=== PATIENT | male | born 1940 | race Caucasian/White ===

== ENCOUNTER → 2023-04-21 09:36 | Outpatient (BNVA) | payer MEDICARE, MEDICAID, SELFPAY | PROVIDERS: Family Provider Internal Medicine; PCP Internal Medicine; Visit Provider Psychiatry & Neurology Neurology | DX: Z09 Encounter for follow-up examination after completed treatment for conditions other than malignant neoplasm (principal); Z86.69 Personal history of other diseases of the nervous system and sense organs; R06.02 Shortness of breath; Z98.890 Other specified postprocedural states | CPT/HCPCS: 99203 ==

== ENCOUNTER 2023-06-02 07:53 | Outpatient (CLI) | payer MEDICARE, MEDICAID, SELFPAY ==
--- NOTE | 2023-06-02 08:30 | USCV_ITS ---
Cher Sotomayor Age: 83 Gender: F : 1940 Exam Date: 06/02/2023 08:56 Ordering Phys: Karina Chen MD Technologist: CT [place] [facility] [place]: carotid stenosis Risk Factors: Previous Vascular Surgery: Right Brachial BP: / Left Brachial BP: / Right Left Velocity (cm/s) Spectral Plaque Velocity (cm/s) Spectral Plaque Syst/Diast Broadening Syst/Diast Broadening 95.90/ 16.50 Prox CCA 116.50/ 19.00 78.90/ 14.80 Mid CCA 107.70/ 15.40 80.60/ 14.30 Distal CCA 91.20 / 15.40 56.50/ 8.50 Prox ICA 54.50 / 14.50 50.00/ 11.10 Mid ICA 100.00/ 25.00 83.60/ 20.30 Distal ICA 87.00 / 19.40 35.60 ECA 63.70 0.87 ICA/CCA 0.86 Antegrade Vertebral Antegrade 74.60/ 28.00 cm/s 52.80/ 8.30 cm/s Tri Subclavian Tri 146.0 124.1 0 0 CONCLUSIONS Right ICA stenosis <50%. Mild atheromatous plaque right carotid bulb/ICA. Left ICA stenosis <50%. Mild atheromatous plaque left carotid bulb/ICA. Normal antegrade Doppler flow noted in the right vertebral artery. Normal antegrade Doppler flow noted in the left vertebral artery. Louie Redmond MD (Electronically Signed) Final Date: 02 June 2023 12:49 S
[2023-06-02 08:54] LABS: Basophils % 0.3 %; Eosinophils # 0.1 10^3/uL (0.0-0.8); Eosinophils % 1.8 %; Hematocrit 47.1 % (37.0-47.0); Lymphocytes # 0.9 10^3/uL (0.8-4.8); Mean Corpuscular Hemoglobin 29.7 pg (28.0-34.0); Mean Corpuscular Volume 87.5 fl (81-99); Monocytes # 0.4 10^3/uL (0.2-0.9); Monocytes % 7.1 %; Neutrophils # 4.53 10^3/uL (1.8-7.7); Neutrophils % 75.3 %; Nucleated Red Blood Cells % 0 %; Platelet Count 226 10^3/cmm (130-400); Red Blood Count 5.38 10^6/uL (4.1-5.3); Red Cell Distribution Width 13.3 % (12.1-15.1)
[2023-06-02 09:02] LABS: Erythrocyte Sedimentation Rate 15 mm/hr (0-15)
[2023-06-02 09:32] LABS: Alanine Aminotransferase 13 U/L (0-33); Albumin Level 4.2 g/dL (3.5-5.2); Alkaline Phosphatase 139 U/L (35-105); Anion Gap 15.4 (5-19); Aspartate Amino Transferase 16 U/L (0-32); Blood Urea Nitrogen 10 mg/dL (8-23); Calcium 9.5 mg/dL (8.5-10.5); Carbon Dioxide 28 mmol/L (22-29); Chloride 97 mmol/L (98-107); Chol HDL Ratio 2.07 mg/dL (0.0-4.40); Cholesterol 203 mg/dL (0-200); Free T4 Free Thyroxine 1.64 ng/dL (0.82-1.77); Globulin 2.1 g/dL (1.3-4.6); Glucose 142 mg/dL (65-115); HDL Cholesterol 98 mg/dL (60-100); LDL Cholesterol Calculated 86 mg/dL (50-129); LDL HDL Ratio 0.88 RATIO (0.00-3.22); Magnesium 1.9 mg/dL (1.7-2.3); Osmolality Calculated 283 mOsm/kg (285-295); Potassium 4.4 mmol/L (3.5-5.1); Sodium 136 mmol/L (136-145); T3 Free 2.8 PG/ML (2.0-4.4); Thyroid Stimulating Hormone 0.58 uIU/mL (0.27-4.20); Total Bilirubin 0.5 mg/dL (0.15-1.2); Total Protein 6.3 g/dL (6.6-8.7); Triglycerides 97 mg/dL (0-150)
[2023-06-02 10:11] LABS: Folate Level > 20.0 ng/mL (4.8-37.3)
[2023-06-02 10:41] LABS: 25 Hydroxy Vitamin D 57 ng/mL (30-100); Vitamin B12 969 pg/mL (232-1245)
[2023-06-03 09:55] LABS: PROTEIN, TOTAL 6.5 g/dL (6.1-8.1)
[2023-06-03 12:30] LABS: CENTROMERE B ANTIBODY <1.0 NEG AI (<1.0 NEG); JO-1 ANTIBODY <1.0 NEG AI (<1.0 NEG); RNP ANTIBODY <1.0 NEG AI (<1.0 NEG); SCL-70 ANTIBODY <1.0 NEG AI (<1.0 NEG); SJOGREN'S ANTIBODY (SS-A) <1.0 NEG AI (<1.0 NEG); SM ANTIBODY <1.0 NEG AI (<1.0 NEG); SS-B <1.0 NEG AI (<1.0 NEG)
[2023-06-03 12:41] LABS: COMPLEMENT COMPONENT C3C 146 mg/dL; COMPLEMENT COMPONENT C4C 24 mg/dL
[2023-06-03 14:34] LABS: ANA SCREEN, IFA NEGATIVE (NEGATIVE)
[2023-06-04 07:50] LABS: ALBUMIN 4.1 g/dL (3.8-4.8); ALPHA 1 GLOBULIN 0.3 g/dL (0.2-0.3); ALPHA 2 GLOBULIN 0.7 g/dL (0.5-0.9); BETA 1 GLOBULIN 0.4 g/dL (0.4-0.6); BETA 2 GLOBULIN 0.3 g/dL (0.2-0.5); GAMMA GLOBULIN 0.7 g/dL (0.8-1.7)
[2023-06-04 12:18] LABS: COMPLEMENT, TOTAL (CH50) >60 U/mL (31-60)
[2023-06-04 18:59] LABS: PTT-LA-Screen 38 sec (< OR = 40)
[2023-06-05 06:44] LABS: Methylmalonic Acid 192 nmol/L (87-318)
[2023-06-05 20:13] LABS: PROTEIN C, ACTIVITY 155 % normal (70-180)
[2023-06-05 20:28] LABS: Antithrombin III Activity 104 % normal (80-135)
[2023-06-05 22:09] LABS: PROTEIN S, ACTIVITY 67 % normal (60-140)
[2023-06-06 18:39] LABS: PROTHROMBIN (FACTOR II) 20210G NEGATIVE
[2023-06-07 10:45] LABS: THYROID PEROXIDASE ANTIBODIES <1 IU/mL (<9)
[2023-06-07 18:35] LABS: Copper Level 129 mcg/dL (70-175)
[2023-06-09 14:44] LABS: Anti-Cardiolipin IgA AB <2.0 APL-U/mL
[2023-06-09 15:20] LABS: Beta 2 Glycoprotein IGA <2.0 U/mL (<20.0); Beta 2 Glycoprotein IGG <2.0 U/mL (<20.0); Beta 2 Glycoprotein IGM <2.0 U/mL (<20.0)
[2023-06-11 18:10] LABS: DNA AB (DS) CRITHIDIA,IFA NEGATIVE (NEGATIVE)
== END 2023-06-02 07:54 | disposition home or self-care (01) ==
PROVIDERS: Visit Provider Specialist
DX: G45.9 Transient cerebral ischemic attack, unspecified (principal); R00.1 Bradycardia, unspecified; R29.90 Unspecified symptoms and signs involving the nervous system; E55.9 Vitamin D deficiency, unspecified
CPT/HCPCS: 36415; 80053; 80061; 82306; 82525; 82607; 82746; 83735; 83921; 84155; 84165; 84439; 84443; 84481; 85025; 85210; 85300; 85303; 85306; 85613; 85651; 85730; 86146; 86147; 86160; 86162; 86235; 86255; 86376; 86431; 93880